=== PATIENT | female | born 1935 | race Caucasian/White ===

== ENCOUNTER → 2016-10-26 | Outpatient (REF) ==
[~2016-10-26] MED LIST: AMARYL4 MG PO; ASPIRIN 81M81 MG/TA2 PO; GLUCOPHAGE500 MG/TAB PO; MACROBID 1100 MG/CAP PO; OYSTER SHELL C500 M3 PO; ULTRAM 50MG TAB50 MG PO
== END ==
LOC: ZLAB.WCH 18:43
DX: Z01.89 Encounter for other specified special examinations (principal)